=== PATIENT | male | born 1990 | race Caucasian/White ===

== ENCOUNTER 2020-02-07 07:44 | Emergency (ER) | payer OTHER ==
[2020-02-07 07:51] VITALS: BP 122/69; PULSE 80; RESP 18; TEMP 98.5
[2020-02-07 08:30] LABS: Glucose,Whole Blood 109 mg/dL (75-99)
--- NOTE | 2020-02-07 08:40 | ED ---
General Adult HPI - General Chief complaint: GI Bleed Stated complaint: hemorrhoids Time Seen by Provider: 02/07/20 08:06 Source: patient, RN notes reviewed Mode of arrival: ambulatory Limitations: no limitations - History of Present Illness Initial comments: 29-year-old male presents emergency Department chief complaint of rectal irritation, bleeding. Patient has a history of internal hemorrhoids. Patient states that he started having some bleeding yesterday. Patient states the bleeding has subsided. Patient has no mental abdominal pain other he had some mild cramping yesterday. No fevers or chills no nausea vomiting. Patient states that he's been drinking more water, walking more unsure if this is causing any of his symptoms. Patient also states he urinates a lot. Patient denies any dysuria hematuria. Denies any fevers or chills he's had a prior colonoscopy showing has hemorrhoids. - Related Data Previous Rx's Medication Instructions Recorded Hydrocortisone Pr Cream 1 applic RECTAL TID #15 gram 02/07/20 [Proctosol-Hc 2.5%] Lidocaine [Lidocaine 5% Rectal 1 applic RECTAL TID #15 gm 02/07/20 Cream] Allergies Allergy/AdvReac Type Severity Reaction Status Date / Time No Known Allergies Allergy Verified 02/07/20 07:51 Review of Systems ROS Statement: Those systems with pertinent positive or pertinent negative responses have been documented in the HPI. ROS Other: All systems not noted in ROS Statement are negative. Past Medical History Additional Past Medical History / Comment(s): Hemrrohoids, diverticulitis History of Any Multi-Drug Resistant Organisms: MRSA Date of last positivie culture/infection: 2008 MDRO Source:: right foot Past Surgical History: Tonsillectomy Past Psychological History: Bipolar, Depression Smoking Status: Current every day smoker Past Alcohol Use History: None Reported Past Drug Use History: Marijuana General Exam Limitations: no limitations General appearance: alert, in no apparent distress Head exam: Present: atraumatic, normocephalic, normal inspection Neck exam: Present: normal inspection. Absent: tenderness, meningismus, lymphadenopathy Respiratory exam: Present: normal lung sounds bilaterally. Absent: respiratory distress, wheezes, rales, rhonchi, stridor Cardiovascular Exam: Present: regular rate, normal rhythm, normal heart sounds. Absent: systolic murmur, diastolic murmur, rubs, gallop, clicks GI/Abdominal exam: Present: soft, normal bowel sounds. Absent: distended, tenderness, guarding, rebound, rigid Rectal exam: Absent: normal inspection (In aphasia noted, no active bleeding.) Back exam: Absent: CVA tenderness (R), CVA tenderness (L) Neurological exam: Present: alert, oriented X3 Skin exam: Present: warm, dry, intact, normal color. Absent: rash Course Vital Signs 02/07/20 07:46 Temperature 98.5 F Pulse Rate 80 Respiratory 18 Rate Blood Pressure 122/69 O2 Sat by Pulse 100 Oximetry Medical Decision Making - Medical Decision Making 29-year-old male presented for rectal bleeding. Patient has an anal fissure. Patient was started on hydrocortisone, and rectal lidocaine. Patient denies use of softeners if he has any hard stool. Patient advised not to strain. Patient had some polydipsia polyuria blood sugars 109. Patient will follow-up with PCP return parameters were discussed. - Lab Data Lab Results 02/07/20 Range/Units 08:28 POC Glucose (mg/dL) 109 H (75-99) mg/dL POC [facility] [employer] ID Oksana Mccracken Disposition Clinical Impression: Anal fissure, Internal hemorrhoids Disposition: HOME SELF-CARE Condition: Stable Instructions (If sedation given, give patient instructions): Anal Fissure (ED), Rectal Bleeding (ED) Additional Instructions: Please return to the Emergency Department if symptoms worsen or any other concerns. Prescriptions: Lidocaine [Lidocaine 5% Rectal Cream] 1 applic RECTAL TID #15 gm Hydrocortisone Pr Cream [Proctosol-Hc 2.5%] 1 applic RECTAL TID #15 gram Is patient prescribed a controlled substance at d/c from ED?: No Referrals: [facility],Clinic [Primary Care Provider] - 1-2 days Time of Disposition: 08:40
== END 2020-02-07 08:48 | disposition home or self-care (01) ==
LOC: EC 07:44
DX: K64.8 Other hemorrhoids (principal); K60.2 Anal fissure, unspecified; R63.1 Polydipsia; R35.8 Other polyuria; F17.200 Nicotine dependence, unspecified, uncomplicated; Z86.14 Personal history of Methicillin resistant Staphylococcus aureus infection
CPT/HCPCS: 36415; 99283

== ENCOUNTER 2020-04-02 21:18 | Emergency (ER) | payer OTHER ==
[2020-04-02 21:22] VITALS: BP 118/80; PULSE 75; RESP 18; TEMP 98.7
[2020-04-02] MEDS ORDERED: AMOXIC-POT CLAV 875MG STARTER PACK 2 TAB BTL PO STA (21:26)
[2020-04-02] MEDS ORDERED: ACET/COD 300 MG/30 MG STARTER PACK 6 TAB BTL PO STA (21:26)
--- NOTE | 2020-04-02 21:26 | ED ---
ENT HPI - General Chief complaint: Dental/Oral Stated complaint: Dental Pain Time Seen by Provider: 04/02/20 21:25 Source: family Mode of arrival: ambulatory Limitations: no limitations - History of Present Illness Initial comments: 29-year-old male presents today for chief complaint of right upper dental pain. Patient states that he has had right upper dental pain for a month however is worsening for the past 2 days. Patient states he can no longer tolerate the pain patient denies fever slightly below the tongue. Patient states he feels like he has enlarged lymph node in the right seventh neck. Patient denies any difficulty breathing or swallowing. Patient denies any compressive symptoms of the neck. Patient denies noting any palpable abscess was states the tooth is very tender to touch. Remaining review of systems negative upon arrival patient appears well and nontoxic in no acute distress. Denies past medical history. - Related Data Previous Rx's Medication Instructions Recorded Hydrocortisone Pr Cream 1 applic RECTAL TID #15 gram 02/07/20 [Proctosol-Hc 2.5%] Lidocaine [Lidocaine 5% Rectal 1 applic RECTAL TID #15 gm 02/07/20 Cream] Amoxicillin/Potassium Clav 1 tab PO Q12HR 7 Days #14 tab 04/02/20 [Augmentin 875-125 Tablet] Allergies Allergy/AdvReac Type Severity Reaction Status Date / Time No Known Allergies Allergy Verified 04/02/20 21:21 Review of Systems ROS Statement: Those systems with pertinent positive or pertinent negative responses have been documented in the HPI. ROS Other: All systems not noted in ROS Statement are negative. Past Medical History Past Medical History: No Reported History Additional Past Medical History / Comment(s): Hemrrohoids, diverticulitis History of Any Multi-Drug Resistant Organisms: MRSA Date of last positivie culture/infection: 2008 MDRO Source:: right foot Past Surgical History: Tonsillectomy Past Psychological History: Bipolar, Depression Smoking Status: Current every day smoker Past Alcohol Use History: None Reported Past Drug Use History: Marijuana General Exam - General Exam Comments Initial Comments: General: The patient is awake and alert, in no distress Eye: +3 mm pupils are equal, round and reactive to light, extra-ocular movements are intact. No nystagmus. There is normal conjunctiva bilaterally. No signs of icterus. Ears, nose, mouth and throat: There are moist mucous membranes and no oral lesions. Tooth #3 tender to touch, no palpable or visible area of fluctuance. No drainage. Patient is a slightly below the time of blood and of the mandible. Small less than 1 cm enlarged anterior cervical chain lymph node right sided. Neck: The neck is supple, there is no tenderness or JVD. Cardiovascular: There is a regular rate and rhythm. No murmur, rub or gallop is appreciated. Respiratory: Lungs are clear to auscultation, respirations are non-labored, breath sounds are equal. No wheezes, stridor, rales, or rhonchi. Musculoskeletal: Normal ROM, no tenderness. Strength 5/5. Sensation intact. Radial pulses equal bilaterally 2+. Neurological: A&O x 3. CN II-XII intact grossly, There are no obvious motor or sensory deficits. Coordination appears grossly intact. Speech is normal. Skin: Skin is warm and dry and no rashes or lesions are noted. Psychiatric: Cooperative, appropriate mood & affect, normal judgment. Limitations: no limitations Course Vital Signs 04/02/20 21:19 Temperature 98.7 F Pulse Rate 75 Respiratory 18 Rate Blood Pressure 118/80 O2 Sat by Pulse 100 Oximetry Medical Decision Making - Medical Decision Making 29-year-old male presenting for dental pain no obvious abscess cannot rule periapical patient be placed on oral antibiotics and recommended follow-up within 24-48 hours with dentist. Patient is to return to the emergency part for swelling below the tongue swelling of the neck difficulty breathing swallowing or fevers. Patient verbalized understanding discharged appearing well Disposition Clinical Impression: Pain, dental Disposition: HOME SELF-CARE Condition: Good Instructions (If sedation given, give patient instructions): Dental Abscess (ED), Toothache (ED) Additional Instructions: Please use medication as discussed. Please follow-up with dentist in 2 days. Please return to emergency room if the symptoms increase or worsen or for any other concerns. Prescriptions: Amoxicillin/Potassium Clav [Augmentin 875-125 Tablet] 1 tab PO Q12HR 7 Days #14 tab Is patient prescribed a controlled substance at d/c from ED?: No Referrals: [facility],Clinic [Primary Care Provider] - 1-2 days Time of Disposition: 22:02
== END 2020-04-02 22:07 | disposition home or self-care (01) ==
LOC: EC 21:18
DX: K08.89 Other specified disorders of teeth and supporting structures (principal); F17.200 Nicotine dependence, unspecified, uncomplicated; Z86.14 Personal history of Methicillin resistant Staphylococcus aureus infection
CPT/HCPCS: 99282

== ENCOUNTER 2020-04-05 21:48 | Emergency (ER) | payer OTHER ==
[2020-04-05 21:52] VITALS: BP 136/81; PULSE 72; RESP 20; TEMP 98.3
--- NOTE | 2020-04-05 22:02 | ED ---
ENT HPI - General Chief complaint: Dental/Oral Stated complaint: Dental Pain Time Seen by Provider: 04/05/20 21:56 Source: patient Mode of arrival: ambulatory Limitations: no limitations - History of Present Illness Initial comments: Patient is a 30-year-old male presenting to emergency Department with chief complaint dental pain. Patient reports she was here about 2 days ago and started on Timentin and given a Tylenol 3 starter pack. Patient reports he slipped see is Skip who 28 of this month. Patient states initially he had swelling before he was started on antibiotics which greatly improved his symptoms. He states the pain initially improved, however now has returned. Patient states his been alternating between Tylenol and Motrin with minimal improvement of symptoms. He denies any night sweats or chills. Denies any right-sided facial swelling. - Related Data Previous Rx's Medication Instructions Recorded Hydrocortisone Pr Cream 1 applic RECTAL TID #15 gram 02/07/20 [Proctosol-Hc 2.5%] Lidocaine [Lidocaine 5% Rectal 1 applic RECTAL TID #15 gm 02/07/20 Cream] Amoxicillin/Potassium Clav 1 tab PO Q12HR 7 Days #14 tab 04/02/20 [Augmentin 875-125 Tablet] Allergies Allergy/AdvReac Type Severity Reaction Status Date / Time No Known Allergies Allergy Verified 04/05/20 21:52 Review of Systems ROS Statement: Those systems with pertinent positive or pertinent negative responses have been documented in the HPI. ROS Other: All systems not noted in ROS Statement are negative. Past Medical History Past Medical History: No Reported History Additional Past Medical History / Comment(s): Hemrrohoids, diverticulitis History of Any Multi-Drug Resistant Organisms: MRSA Date of last positivie culture/infection: 2008 MDRO Source:: right foot Past Surgical History: Tonsillectomy Past Psychological History: Bipolar, Depression Smoking Status: Current every day smoker Past Alcohol Use History: None Reported Past Drug Use History: Marijuana General Exam Limitations: no limitations General appearance: alert, in no apparent distress Head exam: Present: atraumatic, normocephalic, normal inspection Eye exam: Present: normal appearance, PERRL, EOMI Pupils: Present: normal accommodation ENT exam: Present: normal exam, normal oropharynx (No signs of a periapical abscess. Pain is located near tooth #2. No signs of infection at this time along the gumline. Patient has relatively good dentition.), mucous membranes moist Neck exam: Present: normal inspection, full ROM. Absent: tenderness Respiratory exam: Present: normal lung sounds bilaterally. Absent: respiratory distress, wheezes, rales Cardiovascular Exam: Present: regular rate, normal rhythm, normal heart sounds Extremities exam: Present: normal inspection, full ROM. Absent: tenderness Back exam: Present: normal inspection, full ROM. Absent: tenderness Neurological exam: Present: alert, oriented X3 Psychiatric exam: Present: normal affect, normal mood Skin exam: Present: warm, dry, intact, normal color Course Vital Signs 04/05/20 21:50 Temperature 98.3 F Pulse Rate 72 Respiratory 20 Rate Blood Pressure 136/81 O2 Sat by Pulse 99 Oximetry Medical Decision Making - Medical Decision Making Patient is a 30-year-old male presenting to the emergency department with chief complaint of dental pain. On exam no signs of periapical abscess. No signs of dental infection, however patient does appear to have dental pain at tooth #2. Patient is said to have a root canal with his dentist who she is set to see in 6 days. Patient given Tylenol 3 starter pack in the ED. Advised not to drive or operate heavy machinery taking medication. Return parameters discussed. Case discussed with physician. Disposition Clinical Impression: Pain, dental Disposition: HOME SELF-CARE Condition: Stable Instructions (If sedation given, give patient instructions): Toothache (ED) Additional Instructions: Follow-up with a dentist. Take prescribed medication as directed. Do not drive or operate heavy machinery when taking Tylenol 3. Continue taking the antibiotic. Is patient prescribed a controlled substance at d/c from ED?: No Referrals: [facility],Clinic [Primary Care Provider] - 1-2 days Time of Disposition: 22:14
[2020-04-05] MEDS ORDERED: ACET/COD 300 MG/30 MG STARTER PACK 6 TAB BTL PO STA (22:13)
== END 2020-04-05 22:33 | disposition home or self-care (01) ==
LOC: EC 21:48
DX: K08.89 Other specified disorders of teeth and supporting structures (principal); F17.200 Nicotine dependence, unspecified, uncomplicated; Z86.14 Personal history of Methicillin resistant Staphylococcus aureus infection
CPT/HCPCS: 99282

== ENCOUNTER 2020-06-08 04:01 | Emergency (ER) | payer OTHER ==
--- NOTE | 2020-06-08 04:09 | ED ---
Skin/Abscess/FB HPI - General Stated complaint: ingrown hair Time Seen by Provider: 06/08/20 04:03 Source: RN notes reviewed, old records reviewed Limitations: no limitations - History of Present Illness Initial comments: his is a 30-year-old male DF for evaluation patient Dese for evaluation regards to abscess on penis, may reflect colitis patient does have hair pulling or scratching illness does get recurrent follicular infections. Patient concern for ingrown hair. Symptoms for 2-3 days symptoms progressively worseningno fevers but he does feel chills MD complaint: abscess/boil -: days(s) (3) Location: genitals Severity: moderate Severity scale (1-10): 4 Quality: stabbing, aching Consistency: constant Improves with: none Worsens with: none Context: none Associated symptoms: chills Treatments Prior to Arrival: none - Related Data Previous Rx's Medication Instructions Recorded Hydrocortisone Pr Cream 1 applic RECTAL TID #15 gram 02/07/20 [Proctosol-Hc 2.5%] Lidocaine [Lidocaine 5% Rectal 1 applic RECTAL TID #15 gm 02/07/20 Cream] Amoxicillin/Potassium Clav 1 tab PO Q12HR 7 Days #14 tab 04/02/20 [Augmentin 875-125 Tablet] Sulfamethox-Tmp 800-160Mg [Bactrim 2 tab PO BID #28 tab 06/08/20 DS 800-160 mg] Allergies Allergy/AdvReac Type Severity Reaction Status Date / Time No Known Allergies Allergy Verified 06/08/20 04:11 Review of Systems ROS Statement: Those systems with pertinent positive or pertinent negative responses have been documented in the HPI. ROS Other: All systems not noted in ROS Statement are negative. Past Medical History Past Medical History: No Reported History Additional Past Medical History / Comment(s): Hemrrohoids, diverticulitis History of Any Multi-Drug Resistant Organisms: MRSA Date of last positivie culture/infection: 2008 MDRO Source:: right foot Past Surgical History: Tonsillectomy Past Psychological History: Bipolar, Depression Smoking Status: Current every day smoker Past Alcohol Use History: None Reported Past Drug Use History: Marijuana General Exam - General Exam Comments Initial Comments: patient does have small abscess to the lateral aspect of his penis likely related to original hair follicle infections General appearance: alert, in no apparent distress Head exam: Present: atraumatic, normocephalic, normal inspection Eye exam: Present: normal appearance, PERRL, EOMI. Absent: scleral icterus, conjunctival injection, periorbital swelling ENT exam: Present: normal exam, mucous membranes moist Neck exam: Present: normal inspection. Absent: tenderness, meningismus, lymphadenopathy Respiratory exam: Present: normal lung sounds bilaterally. Absent: respiratory distress, wheezes, rales, rhonchi, stridor Cardiovascular Exam: Present: regular rate, normal rhythm, normal heart sounds. Absent: systolic murmur, diastolic murmur, rubs, gallop, clicks GI/Abdominal exam: Present: soft, normal bowel sounds. Absent: distended, tenderness, guarding, rebound, rigid Extremities exam: Present: normal inspection, full ROM, normal capillary refill. Absent: tenderness, pedal edema, joint swelling, calf tenderness Back exam: Present: normal inspection Neurological exam: Present: alert, oriented X3, CN II-XII intact Psychiatric exam: Present: normal affect, normal mood Skin exam: Present: warm, dry, intact, normal color. Absent: rash Course Vital Signs 06/08/20 04:08 Temperature 98.3 F Pulse Rate 79 Respiratory 18 Rate Blood Pressure 129/79 O2 Sat by Pulse 99 Oximetry Procedures - Incision & Drainage Consent Obtained: verbal consent Site: penis I&D Cleaning Method: Alcohol Wipe Sterile Field Used?: Yes Scalpel Used: #11 Needle Aspiration Performed?: No Irrigation Performed?: No I&D Drainage Obtained: Pus, Blood Culture Obtained?: No Complications: pain, bleeding Patient Tolerated Procedure: well Medical Decision Making - Medical Decision Making female for penile abscess likely ingrown hair, abscesses opened here in the ER drained well patient can be discharged home to encourage warm compresses antibiotics Disposition Clinical Impression: Abscess, penis Disposition: HOME SELF-CARE Condition: Good Instructions (If sedation given, give patient instructions): Abscess Incision and Drainage (ED) Prescriptions: Sulfamethox-Tmp 800-160Mg [Bactrim DS 800-160 mg] 2 tab PO BID #28 tab Is patient prescribed a controlled substance at d/c from ED?: No Referrals: [facility],Clinic [Primary Care Provider] - 1-2 days
[2020-06-08 04:11] VITALS: BP 129/79; PULSE 79; RESP 18; TEMP 98.3
[2020-06-08] MEDS ORDERED: SULFAMETHOX-TMP 800-160MG 1 EACH TAB PO STA (04:27)
[2020-06-08] MEDS ORDERED: SULFAMETH-TMP DS STARTER PACK 2 TAB BTL PO STA (04:27)
== END 2020-06-08 04:45 | disposition home or self-care (01) ==
LOC: EC 04:01
DX: N48.21 Abscess of corpus cavernosum and penis (principal); F17.200 Nicotine dependence, unspecified, uncomplicated; Z86.14 Personal history of Methicillin resistant Staphylococcus aureus infection
CPT/HCPCS: 10060; 99283

== ENCOUNTER → 2021-02-05 | Outpatient (CLI) | payer OTHER ==
--- NOTE | 2021-02-05 16:09 | CT ---
EXAMINATION TYPE: CT brain wo/w con DATE OF EXAM: 02/05/2021 COMPARISON: None INDICATION: PT states he has head rushes/headaches/sensations that are accompanied by chemical smells and he says "life stops for a few seconds". Denies trauma. DLP: 2363 mGycm, Automated exposure control for dose reduction was used. CONTRAST: None CT of the brain is performed utilizing 3 mm thick sections through the posterior fossa and 3 mm thick sections through the remaining calvarium. Study is performed within 24 hours of arrival to the hosp [facility]. No abnormal hyperdensity is present to suggest an acute intracranial hemorrhage. No mass lesion is evident. Inferior frontal lobes appear normal. No cribriform plate abnormality is i dentified. No acute infarcts are evident. Ventricles and sulci are appropriate for the patient age. Mucosal thickening is seen in the left maxillary sinus. Correlate for acute maxillary sinusitis. No abnormal enhancement is evident. IMPRESSIONS: 1. Normal pre and postcontrast the brain. 2. Mucosal thickening left maxillary sinus. Consider acute left maxillary sinusitis.
== END | disposition home or self-care (01) ==
LOC: RADCTMAIN 14:52
DX: J01.00 Acute maxillary sinusitis, unspecified (principal)
CPT/HCPCS: 70470; Q9967